=== PATIENT | male | born 1960 | race Caucasian/White ===

== ENCOUNTER → 2019-02-26 | Outpatient (CLI) | payer OTHER ==
--- NOTE | 2019-02-27 08:34 | RAD ---
EXAM: Right breast ultrasound. HISTORY: Palpable foci right breast after trauma. COMPARISON: None. FINDINGS: Sonographic evaluation of the right breast was performed at the site of concern at the 12:00 position 4 cm from the nipple. This reveals a hyperechoic immediately subcutaneous focus spanning 4.4 x 1.3 x 0.9 cm. It contains some small regions of hypoechogenicity. This is consistent with necrosis, possibly with small cutaneous hematomas. There is no clearly suspicious sonographic finding. IMPRESSION: 1. BI-RADS Category 3: Probably benign finding. 2. These findings are most consistent with subcutaneous ecchymosis/fat necrosis. Sonographic follow-up can be performed in 3 months to confirm resolution if the palpable finding does not completely resolve. Electronically signed by: Shailesh Solorio MD (02/27/2019 8:31 AM) [facility]
== END | disposition home or self-care (01) ==
LOC: US 15:49
PROVIDERS: ATTEND Internal Medicine
DX: N63.12 Unspecified lump in the right breast, upper inner quadrant (principal)
CPT/HCPCS: 76641